=== PATIENT | female | born 1980 | race Asian ===

== ENCOUNTER 2023-12-10 17:49 | Inpatient (IN) | payer OTHER, SELFPAY ==
[2023-12-10 08:43] VITALS: BMI 29.2
[2023-12-10 08:54] VITALS: BP 95/59
[2023-12-10 11:32] VITALS: BP 95/56
[2023-12-10 11:34] LABS: % Basophils 0.2 % (0-2); % Immature Granulocytes 0.6 % (0-0.5); % Lymphocytes 4.4 % (20.5-51.1); % Monocytes 2.3 % (1.7-9.3); % Neutrophils 92.5 % (42.2-75.2); Absolute Basophils 0.1 10^3/uL (0-0.2); Absolute Immature Granulocytes 0.2 10^3/uL (0-0.05); Absolute Monocytes 0.5 10^3/uL (0.1-0.6); Absolute Neutrophils 21.4 10^3/uL (1.4-6.5); Hematocrit 38.8 % (37.0-47.0); Hemoglobin 13.3 g/dL (12.0-16.0); Mean Corp Hgb Conc. 34.3 g/dL (33.0-37.0); Mean Corpuscular Hgb 28.4 pg (27.0-31.0); Mean Corpuscular Volume 82.7 fL (81.0-99.0); Mean Platelet Volume 9.4 fL (7.4-10.4); Nucleated Red Blood Cells % 0 %; Platelet Count 274 10^3/uL (130-400); Red Blood Cell Count 4.69 10^6/uL (4.20-5.40); Red Cell Dist. Width 13.3 % (11.5-14.5); White Blood Cell Count 23.2 10^3/uL (4.8-10.8)
[2023-12-10 11:52] VITALS: BP 99/62
--- NOTE | 2023-12-10 11:54 | ED.GENMED ---
History of Present Illness
General
Chief Complaint: Breathing Problem
Source: patient
Exam Limitations: none
Time Seen by Provider: 12/10/23 11:44
Nursing documentation reviewed up to this point in time: agreed with
Travel History
Have you had any contact with someone who has COVID-19?: No
Do you have any symptoms of coronavirus? Fever > 100 degrees, chills, cough, shortness of breath, sore throat, loss of taste or smell, muscle aches, or headache?: No
History of Present Illness
History of Present Illness:
43-year-old female with no significant chronic medical issues presents to the emergency room for evaluation of abdominal pain and chills. Patient reports onset of symptoms about 2 days ago and they have been worsening since then. She says that
last night she had shaking chills which finally prompted her to come to the hospital. She says she has had abdominal pain worse in the lower abdomen�she says it radiates across her lower abdomen. She also reports some mild heartburn sensation.
She has had nausea but no vomiting. No diarrhea or constipation. No dysuria, hematuria, change in frequency. She denies any chest pain or shortness of breath. She denies any cough. She says she has a very mild headache. She denies any other
complaints. Noted to be febrile here�she has not taken anything for her fever she says. She denies any prior history of abdominal surgeries.
Past History
Past History
ED Past Medical History: None
ED Past Surgical History: None
Patient has exhibited threatening behavior?: No
PSI?: No
Social History
Tobacco: Non-smoker
Alcohol: None
Drug: None
Personal:
Living: with family
Review of Systems
Review of Systems
All Other Systems: ROS reviewed and negative except as documented in HPI and ROS
Constitutional: Reports fever and chills
EENT: Denies sore throat or runny nose
Respiratory: Denies cough or trouble breathing
Cardiac: Reports chest pain; Denies diaphoresis or palpitations
ABD/GI: Reports abdominal pain and nausea; Denies vomiting or diarrhea
: Denies dysuria, frequency or flank pain
Musculoskeletal: Denies neck pain or back pain
Neurological: Reports headache; Denies dizzy
Phy Exam
Physical Exam
Physical Exam:
General: Awake, alert, oriented x3; no acute distress
Head: Normocephalic, atraumatic
Eyes: Conjunctiva normal, sclera anicteric
Throat: Airway intact, handling secretions
Neck: Trachea midline, supple without meningismus
Lungs: Clear to auscultation bilaterally, no wheezing, rales, rhonchi
Heart: Tachycardia with regular rhythm, no murmurs, gallops, or rubs
Abd: Soft, non distended, diffusely tender maximally in the lower abdomen with voluntary guarding in the left lower quadrant and right lower quadrant
Back: No CVA tenderness
Neuro: No gross deficits
Skin: no rash
Extremities: No edema in extremities, warm and well-perfused
Scores
Heart Failure Risk
Heart Failure Risk Score: Not Applicable
Heart Score for Chest Pain Patients
STEMI patient?: Not applicable
Withdrawal Assessment of Alcohol
Withdrawal Assessment Completed?: Not applicable
Course
Orders/Labs/Results
Orders:
Orders
12/10/23 09:00
Electrocardiogram (*1) Urgent
Reason for Study: Shortness of Breath
EKG- Treatment ONCE
12/10/23 09:01
Test Result ONCE
12/10/23 11:30
Complete Blood Count/With Diff Urgent
Comprehensive Metabolic Panel Urgent
HCG, Serum Qualitative Screen Urgent
Lipase Urgent
12/10/23 11:47
CT Abd/pelvis W Iv Cont Urgent
Comment:
Reason For Exam: abd pain, fever
12/10/23 11:54
0.9% Sodium Chloride 1000 ml [Nss] 1,000 ml IV BOLUS
Acetaminophen [Tylenol] 1,000 mg PO NOW STA
12/10/23 11:59
Ketorolac [Toradol] 15 mg IV NOW STA
12/10/23 12:06
Lactate Level [Lactic Acid] Urgent
Blood Culture Q30M
YASSINE Source: Blood/Venous
Specimen Description:
Blood Culture Q30M
YASSINE Source: Blood/Venous
Specimen Description:
12/10/23 13:38
CUSTOMS ENTRY WRITER CONSULT Urgent
Consulting Provider: Deisy Eckert
Was physician already notified: Yes
CefTRIAXone [Rocephin] 1,000 mg IV NOW STA
MetroNIDAZOLE 500 MG/100 ML [Flagyl 500 mg] 100 ml IV NOW
12/10/23 13:45
Doxycycline Hyclate [Vibramycin] 100 mg 0.9% Sodium Chloride 250 ml [Nss] 250 ml IV NOW
12/10/23 14:19
Urinalysis Reflex To Culture Urgent
Date Specimen was Collected: 12/10/23
Time Specimen was Collected: 14:13
Urine Microscopic Reflex Cult Urgent
12/10/23 14:38
D-Dimer Urgent
12/10/23 14:47
Chlamydia/GC by PCR Urgent
YASSINE Source: ENCX
Specimen Description:
Source:: CERVIX
Date Specimen was Collected: 12/10/23
Time Specimen was Collected: 14:45
Genital Culture Urgent
YASSINE Source: Cervix
Specimen Description:
Date Specimen was Collected: 12/10/23
Time Specimen was Collected: 14:45
12/10/23 15:05
Admit Patient As Directed
Co-Sign Provider:
Level of Care: Inpatient admission
Assign to:: LDRP
Physician / Group: [facility]
Diagnosis: TOA
Patient Condition: Good
Reason for Hospitalization: TOA
Expected length of stay greater than two midnights?: Yes
ELOS- Estimated Length of Stay in days: 3
I certify the patient meets the requirements for IP care: Yes
Reason for Overnight Stay: Require IV med- infection
Type+Screen Urgent
Activity As Directed
Activity Level: Ambulate
Comment: Patient may ambulate
INT (Intravenous Needle Therapy) As Directed
Okay to Shower As Directed
Comment: for patient comfort unless contraindicated by maternal or condition
Vital Signs As Directed
Frequency: Per unit guidelines
Call for:: SBP >/= 160, DBP >/= 110, pulse > 120, temperature > 100.4 F
12/10/23 15:11
Acetaminophen [Tylenol] 1,000 mg PO Q6HPRN PRN
12/10/23 15:14
Add On - Microbiology Urgent
Tests Added?: Chlamydia/GC by PCR
12/10/23 15:18
Venous Foot Pumps As Directed
Location: Bilateral feet
Frequency: While in bed
DX Deep Vein Thrombosis Video Routine
12/10/23 15:22
Ibuprofen [Motrin] 600 mg PO Q6HPRN PRN
Ondansetron Injectable [Zofran] 8 mg Dextrose 5%/Water 50 ml [D5w] 50 ml IV Q6HPRN
Oxycodone [Roxicodone] 5 mg PO Q4HPRN PRN
12/10/23 15:26
Resume Diet As Directed
Comment: regular diet for now; NPO after midnight 12/10/23
12/10/23 15:47
CT Chest Pe Study Urgent
Comment:
Reason For Exam: cp
Acetaminophen [Tylenol] 1,000 mg PO Q6HPRN PRN
12/10/23 16:00
Lactated Ringers [Lr] 1,000 ml IV DIRECTED
12/10/23 16:08
0.9% Sodium Chloride 1000 ml [Nss] 1,000 ml IV BOLUS
12/10/23 18:00
Ibuprofen [Motrin] 600 mg PO Q6HPRN PRN
Ketorolac [Toradol] 15 mg IV Q6HPRN PRN
12/10/23 20:00
MetroNIDAZOLE 500 MG/100 ML [Flagyl 500 mg] 100 ml IV Q12H
12/10/23 22:00
Doxycycline Hyclate [Vibramycin] 100 mg 0.9% Sodium Chloride 250 ml [Nss] 250 ml IV Q12H
12/11/23 Breakfast
NPO
Allow oral meds: Yes
Allow clear liquids: Sips of Clears
Comment: NPO after midnight
Complete Blood Count/With Diff IN AM
12/11/23 11:59
Flush (0.9% Sodium Chloride) [Flush (Nss)] See Dose Instructions IV BID@1159,1201
12/11/23 12:00
CefTRIAXone [Rocephin] 1,000 mg IV Q24H
Sterile Water [Sterile Water For Injection] 10 ml IV Q24H
12/12/23 06:00
Complete Blood Count/With Diff IN AM
12/13/23 06:00
Complete Blood Count/With Diff IN AM
12/14/23 06:00
Complete Blood Count/With Diff IN AM
Abnormal Lab Results
12/10/23 12/10/23 12/10/23
11:30 14:19 14:38
WBC 23.2 H 10^3/uL
(4.8-10.8)
Abs Immat Gran (auto) 0.2 H 10^3/uL
(0-0.05)
Absolute Neuts (auto) 21.4 H 10^3/uL
(1.4-6.5)
Absolute Lymphs (auto) 1.0 L 10^3/uL
(1.2-3.4)
Immature Gran % 0.6 H %
(0-0.5)
Neutrophils % 92.5 H %
(42.2-75.2)
Lymphocytes % 4.4 L %
(20.5-51.1)
D-Dimer 1.05 H ug/mlFEU
(0.00-0.50)
Glucose 137 H mg/dl
(70-99)
Urine Ketones 1+ A
(Negative)
Ur Occult Blood Reflex Trace A
(Negative)
Leukocyte Esterase Rfl Trace A
(Negative)
12/10/23 11:30
12/10/23 11:30
Vital Signs
Initial and Last Documented VS:
Initial Vital Signs
Temp Pulse Resp BP Pulse Ox
37.5 C 110 18 95/59 98
12/10/23 08:54 12/10/23 08:54 12/10/23 08:54 12/10/23 08:54 12/10/23 08:54
Last Documented Vital Signs
Temp Pulse Resp BP Pulse Ox
37.3 C 75 20 94/59 97
12/10/23 13:51 12/10/23 16:45 12/10/23 12:45 12/10/23 16:29 12/10/23 16:45
MDM/Problems Addressed
Differential Diagnosis Includes:
Appendicitis, diverticulitis, cholecystitis, UTI/pyelonephritis
MDM/Problems Addressed:
43-year-old female presents to the emergency room for evaluation of abdominal pain associate with fever and shaking chills worsening over the past 48 hours. She arrived was mildly hypotensive at 95/59, tachycardic to 110, febrile to 38.4 �C.
Physical exam as above�she is diffusely tender in the abdomen but maximally in the lower abdomen. Will plan to place an IV check labs including a CBC and a CMP; with multiple SIRS criteria and concern for intra-abdominal infection will send lactate
and blood cultures. Will check lipase and hCG. Will check an EKG with her report of heartburn although low suspicion for cardiac pathology. Will send a urinalysis. Will treat fever with Tylenol, Toradol for pain, provide IV fluids. Monitor very
closely reassess after the above.
Labs reviewed: CBC shows leukocytosis to 23.2 with predominant neutrophils. CMP no clinically significant abnormalities. hCG negative. CT of the abdomen pelvis called at the radiology: Positive for right-sided tubo-ovarian abscess. Will treat
with ceftriaxone, doxycycline, metronidazole. Case discussed with CUSTOMS ENTRY WRITER who will come to bedside to evaluate.
CUSTOMS ENTRY WRITER to admit to their service for IV antibiotics. CUSTOMS ENTRY WRITER attending was concerned about patient's pleuritic chest pain�patient describes as heartburn but it is somewhat worse with inspiration, requesting PE workup prior to admission.
D-dimer was positive will send for CTA to rule out PE prior to admission to CUSTOMS ENTRY WRITER service.
CTA negative for PE�admit to CUSTOMS ENTRY WRITER service.
*Radiology
Radiology exam reviewed: radiology read reviewed
*Pulse Oximetry
Patient hypoxic: no
*EKG
Interpreted by ED Provider?: Yes
Heart Rate: 95
Rate: normal
Rhythm: sinus
Fults: normal axis
Interval: normal interval
QRS Pattern: normal QRS
Ischemia: no ischemia
*Critical Care Note
Total Time (30-74mins, 75-104mins- exclusive of procedures): Not Applicable
Data Reviewed
Source: patient, records and spouse
Patient Management
Discussion with other providers: Pulp Cooker (Discussed with CUSTOMS ENTRY WRITER)
Escalation/DeEscalation of care consider admission/obs:
Admission indicated
ED Attending Note
-
Portions of this chart may have been created with voice recognition software.� Occasional wrong word or��sound alike� substitutions may have occurred due to the inherent limitations of voice recognition software.
Discharge Plan
Departure
Patient Disposition: Admit
Date of Disposition: 12/10/23
Time of Disposition: 13:40
Admit to doctor: Babar
Presentation/result/management discussed w/ accepting MD/DO: CUSTOMS ENTRY WRITER
Discharge Problem:
Right tubo-ovarian abscess
Prescriptions:
No Action
Excedrin Migraine 250-250-65 mg Tablet
1 tab PO DAILYPRN PRN (Reason: migraine)
Referrals:
Ubaldo Kaba MD [Family Provider] -
Interventions
Interventions:
*Risk Screen - Suicide Last Done: 12/10/23 11:45
*General Assessment Last Done: 12/10/23 12:26
*Neglect/Abuse Screening Last Done: 12/10/23 11:45
ED- Fall Risk Assessment Last Done: 12/10/23 11:45
*ED COVID-19 Vaccine History Last Done: 12/10/23 11:45
ED- Cardiac Assessment Last Done: 12/10/23 11:45
ED- Pulmonary Assessment Last Done: 12/10/23 11:55
Discharge Date and Time
Print Language: EGYPTIAN
[2023-12-10 11:55] LABS: HCG, Serum Qualitative Screen Negative
[2023-12-10 12:00] VITALS: BP 102/64
[2023-12-10 12:01] LABS: ALT (SGPT) 15 U/L (0-35); AST (SGOT) 23 U/L (14-36); Albumin 4.4 g/dl (3.5-5.0); Alkaline Phosphatase 48 U/L (38-126); Blood Urea Nitrogen 12 mg/dl (7-17); Calcium 9.6 mg/dl (8.4-10.2); Carbon Dioxide 24 mmol/L (22-30); Chloride 101 mmol/L (98-107); Estimated Creatinine Clearance 111 ml/min; Glucose 137 mg/dl (70-99); Potassium 4.1 mmol/L (3.5-5.1); Sodium 135 mmol/L (135-145); Total Bilirubin 1.1 mg/dl (0.2-1.3); Total Protein 7.6 g/dl (6.3-8.2); eGFR > 60.00
[2023-12-10] MEDS: TORADOL 15 MG IV ×2 (12:14→21:16)
[2023-12-10] MEDS: TYLENOL 1000 MG PO (12:14)
[2023-12-10] MEDS: NSS 1000 IV ×2 (12:14→16:27)
[2023-12-10 12:51] LABS: Lipase 97 U/L (23-300)
[2023-12-10 12:51] LABS: Lactic Acid 1.1 mmol/L (0.7-2.0)
[2023-12-10] MEDS: FLAGYL 500 MG 100 IV (13:45)
[2023-12-10] MEDS: ROCEPHIN 1000 MG IV (13:45)
[2023-12-10 14:28] LABS: Urine Albumin Trace (Neg - Trace); Urine Bilirubin Negative (Negative); Urine Character Clear (Clear); Urine Color Yellow; Urine Glucose Negative (Negative); Urine Ketone 1+ (Negative); Urine Leukocyte Trace (Negative); Urine Nitrite Negative (Negative); Urine Occult Blood Trace (Negative); Urine Specific Gravity 1.005 (<1.030); Urine Urobilinogen Negative (Neg - 1+); Urine pH 6.5 (5.0-9.0)
--- NOTE | 2023-12-10 14:31 | HPS.HSE ---
Family Physician
-
Family Physician: Ubaldo Kaba
Chief Complaint
-
fever/chills
History of Present Illness
43yo , LMP 2wks ago, using nothing for BC, presents to the ER with c/o fever/chills. The past 2 nights has felt feverish with chills, though yesterday during the day felt okay. This morning, she had some nausea, too. No vomiting. Has not
eaten anything today yet. Has also had some substernal chest pain, worse when she takes a deep breath in and some lower pelvic discomfort; these symptoms just started today. Denies any inciting factor. Thought maybe she had pneumonia (denies cough)
so she came into the ER to be evaluated.
In the ER, patient febrile 101.1F on presentation and had leukocytosis 23. CT scan done and showed a 6.6 x 5.7 x 3.3cm right-sided TOA, so she was given Ceftriaxone 1gm IV, Flagyl 500mg IV and Doxycycline 100mg IV, and GREY ROLL MAN was consulted.
Medical History
Past Medical History
Past Medical History: Reports Other (migraines)
Additional Past Medical History:
GynHx: denies h/o STIs or abn paps; pap up to date, per pt. Patient has regular presidential support specialist at [facility] (Dr. Nathan); Has regular menses qMo, lasting about 1wk, some dysmenorrhea, first 2 days usually heavy.
ObHx: , term x2 (last baby 11yrs ago), 1st trimester SAB 2019
Past Surgical History: Reports None
Social History
Tobacco: Non-smoker
Alcohol: None
Drug: None
Personal:
Living: With Family ( and 2 kids)
Family History
Family History: Not pertinent
Allergies / Home Medications
Allergies reflects when Allergies were last updated in [employer].
Home Medications with original date entered in [employer]
Excedrin Migraine prn migraines-- last taken >24hrs ago
Allergy/Medication List:
PCN- unknown reaction as a child
Review of Systems
-
History Source: Patient
A 12 point ROS was completed and negative except as noted: Yes
Constitutional: Reports Fever and Chills
EENT: Reports No Symptoms (Denies URI sx)
Respiratory: Reports Other (substernal chest discomfort on deep inspiration; denies other chest pain, SOB, wheezing or cough)
Cardiac: Reports Chest Pain (see HPI-- only when taking a deep breath; Denies palpitations, dizziness, diaphoresis)
Abdomen/GI: Reports Abdominal Pain (lower abdominal discomfort today; Denies diarrhea or constipation) and Nausea
: Reports Discharge (vaginal discharge, no odor or vaginal irritation; Denies urinary sx)
Musculoskeletal: Reports No Symptoms (no leg pain or swelling)
Skin: Reports No Symptoms
Neurological: Reports No Symptoms
Endocrine: Reports No Symptoms
Hematologic/Lymphatic: Reports No Symptoms
Psych: Reports No Symptoms
Physical Exam
Vital Signs
Vital Signs
Temp 101.1F on presentation
Temp Pulse Resp BP Pulse Ox
99.2 F 96 20 102/64 96
12/10/23 13:51 12/10/23 14:18 12/10/23 12:45 12/10/23 12:00 12/10/23 14:00
Physical Exam
General: Well Developed, Well Nourished, No Apparent Distress and Conversant
HEENT: NormoCephalic and Moist mucous membranes
Respiratory: Clear and Non Labored Respirations
Cardiac: S1/S2 and Regular Rhythm
Breast: Deferred by me
GI: Soft, Non Distended, Normal Bowel Sounds and Tender (+mild TTP across the lower abdomen, R>L, no R/G)
Rectal: Deferred by Provider
Genito-urinary: Vaginal Discharge (yellow/brown watery discharge- vaginitis swab, GC/CT swab sent to lab) and Other (NEFG, no lesions, 6wk AV uterus, +rt adnexal fullness and mild TTP, no CMT, no left adnexal mass or TTP)
Musculoskeletal: No Clubbing, No Cyanosis, No Edema and Normal Gait & Station
Skin: Warm and Dry
Neuro: Awake, Alert and Oriented
Hematologic/Lymphatic: No Lymphadenopathy
Psych: Calm
Laboratory Results
-
12/10/23 11:30
12/10/23 11:30
Laboratory Results
Lactic Acid 1.1 mmol/L (0.7-2.0) 12/10/23 12:06
Total Bilirubin 1.1 mg/dl (0.2-1.3) 12/10/23 11:30
AST 23 U/L (14-36) 12/10/23 11:30
ALT 15 U/L (0-35) 12/10/23 11:30
Alkaline Phosphatase 48 U/L (38-126) 12/10/23 11:30
Lipase 97 U/L (23-300) 12/10/23 11:30
HCG negative
Data Reviewed
-
Critical Care Time (in minutes): 60
CT Scan: Report Reviewed by me, Discussed with Physician and Discussed with Patient
Lab Data: Labs Reviewed by me and Discussed with Physician
Impression/Plan
-
IMPRESSION: 43yo premenopausal, non- female with 6.6cm right-sided TOA. Non-surgical abdomen on exam and not septic.
Fever resolved after Tylenol and initiation of IV antibiotics in the ER.
Of note, pt has some substernal chest discomfort with deep inspiration. EKG normal in ER. No leg swelling or leg pain. SpO2 has been 95-99%.
PLAN:
-Admit to [facility]
-ER physician to r/o VTE/PE prior to admission to the [facility] (low suspicion)
-Ambulate as tolerated, JONI hose for VTE prophylaxis
-IV fluids at maintenance
-Reg diet for now, NPO after midnight in case patient does not continue to clinically improve
-Meds: -IV Ceftriaxone 1gm q24hr, Doxycycline 100mg BID and Flagyl 500mg BID
-Zofran prn nausea
-Motrin, Tylenol prn pain, oxycodone prn severe pain
-CBC qAM
-Pt counseled that we would expect clinical improvement in the 24-48hrs. IF patient does not improve after 48hrs or clinically worsens, then surgical intervention may be necessary. Repeat imaging may also be done in about 72hrs.
60mins spent reviewing chart, obtaining history, examining patient, counseling patient and on plan, coordinating care with ER physician and documentation.
Patricia Eckert,
[2023-12-10] MEDS: VIBRAMYCIN 260 MG IV (14:39)
[2023-12-10 14:59] LABS: Urine Red Blood Cell 0-2 /HPF (0-2); Urine White Cell 0-2 /HPF (0-5)
[2023-12-10 15:36] LABS: D-Dimer 1.05 ug/mlFEU (0.00-0.50)
[2023-12-10 16:29] VITALS: BP 94/59
[2023-12-10 19:47] VITALS: BMI 28.6
[2023-12-10 20:34] VITALS: BP 102/66
--- NOTE | 2023-12-10 22:42 | W.PN.UPDATE ---
Update Note
Progress Note Update
Pt feeling better since admission. Nausea has resolved, tolerating reg diet. Denies f/c. Not in pain when just lying still, but has some lower abdominal discomfort when she is up moving around, across the whol lower abdomen. Has not had anything for
pain since the ER. Requesting medication for a GUTIERREZ. States chest discomfort has now resolved. No SOB. No leg pain.
VSS- afebrile, 98.1F
Gen: NAD
Abd: soft, ND, no mass, +mild TTP across the lower abdomen, R>L,no R/G
Extr: no calf TTP
A/P 43yo pre-menopausal, non- female with 6.6cm right TOA. No signs of Sepsis. Appears to be clinically improving already on IV abx.
-Continue IV rocephin/flagyl/doxy
-NPO after midnight, just in case she is not continuing to improve. If still clinically improving in the AM, will change back to reg diet
-Toradol, tylenol, oxycodone prn pain-- may have toradol or tylenol now for GUTIERREZ
-Continue current care
Patricia Eckert,
[2023-12-11] MEDS: FLAGYL 500 MG 100 IV ×2 (01:29→13:25)
[2023-12-11] MEDS: VIBRAMYCIN 260 MG IV ×2 (02:46→14:36)
[2023-12-11 04:18] VITALS: BP 90/52
[2023-12-11 05:03] LABS: % Basophils 0.3 % (0-2); % Eosinophils 1.3 % (0-6); % Immature Granulocytes 0.3 % (0-0.5); % Lymphocytes 19.5 % (20.5-51.1); % Monocytes 6.9 % (1.7-9.3); % Neutrophils 71.7 % (42.2-75.2); Absolute Eosinophils 0.2 10^3/uL (0-0.7); Absolute Lymphocytes 2.3 10^3/uL (1.2-3.4); Absolute Monocytes 0.8 10^3/uL (0.1-0.6); Absolute Neutrophils 8.6 10^3/uL (1.4-6.5); Hematocrit 32.9 % (37.0-47.0); Hemoglobin 10.6 g/dL (12.0-16.0); Mean Corp Hgb Conc. 32.2 g/dL (33.0-37.0); Mean Corpuscular Hgb 28.2 pg (27.0-31.0); Mean Corpuscular Volume 87.5 fL (81.0-99.0); Mean Platelet Volume 10.1 fL (7.4-10.4); Nucleated Red Blood Cells % 0 %; Platelet Count 229 10^3/uL (130-400); Red Blood Cell Count 3.76 10^6/uL (4.20-5.40); Red Cell Dist. Width 13.4 % (11.5-14.5); White Blood Cell Count 11.9 10^3/uL (4.8-10.8)
[2023-12-11] MEDS: LR 1000 IV ×2 (05:49→15:43)
--- NOTE | 2023-12-11 07:43 | W.PN.GYN ---
Today's Communication / Plan
-
43yo F with 6.6cm right TOA. Clinically improving on IV abx.
-Continue IV Rocephin/Flagyl/Doxy
-Advance to reg diet
-Ambulatory
Physician Note
-
Patient continues to feel better. No f/c overnight. Last fever was at 1130 yesterday, 101.1F. Lower abdominal pain still present, rated about a 3-4/10, but better than it was. Has not needed narcotic pain meds. GUTIERREZ resolved. CP/SOB also resolved
(had this in the ED-- CT chest neg for PE). Denies leg pain.
VSS- BP 90/52, HR 79, RR 16, T 98.3F
Gen: NAD, WD/WN
Abd: soft, mild ttp across lower abdomen, R>L, ND, no r/g
Extr: no calf TTP or edema b/l
Labs reviewed-- 11.9> 10.6/32.9<229K (WBC down from 23 yesterday)
A/P 43yo F with 6.6cm right TOA. Clinically improving on IV abx.
-Continue IV Rocephin/Flagyl/Doxy
-Advance to reg diet
-Ambulatory, JONI mcgrath for VTE prophylaxis
-Pain meds as needed
Patricia Eckert, DO
[2023-12-11 09:04] VITALS: BP 108/76
[2023-12-11] MEDS: STERILE WATER FOR INJECTION 10 ML IV (11:47)
[2023-12-11] MEDS: ROCEPHIN 1000 MG IV (11:47)
[2023-12-11] MEDS: FLUSH (NSS) 1 FLUSH IV (11:51)
[2023-12-11 12:43] VITALS: BP 101/54
[2023-12-11] MEDS: FLUSH (NSS) IV (13:24)
--- NOTE | 2023-12-11 16:16 | W.PN.UPDATE ---
Update Note
Progress Note Update
Patient seen and evaluated earlier this AM by Dr Eckert, note reviewed.
Patient resting comfortably in chair, feels 'better', but tired and with decreased appetite, but no nausea or vomiting. Pain improved, has not required medication today.
Reviewed plan which would be to continue with IV antibiotic therapy for minimum 72 hours, daily CBC, await culture results and repeat imaging in 72 hours (Friday), as long as patient is feeling clinically improved.
Patient aware will need 14 day course of antibiotics, oral ones to be used post-Hospitalization.
Patient has ASSOCIATE PROFESSOR PHYSICIAN, aware will need follow up post hospitalization.
[2023-12-11 16:25] VITALS: BP 115/75
--- NOTE | 2023-12-11 18:45 | PTCARENOTE ---
Pt c/o discomfort at PIV site. IV pump alraming occlusion. Unable to flush L wrist PIV. IV restarted R forearm. IV infusing w/o discomfort
[2023-12-11] MEDS: TORADOL 15 MG IV (19:42)
[2023-12-12 00:15] VITALS: BP 88/61
[2023-12-12] MEDS: FLAGYL 500 MG 100 IV ×2 (01:30→13:25)
[2023-12-12] MEDS: VIBRAMYCIN 260 MG IV ×2 (02:45→14:48)
[2023-12-12 06:02] LABS: % Basophils 0.2 % (0-2); % Eosinophils 1.8 % (0-6); % Immature Granulocytes 0.6 % (0-0.5); % Lymphocytes 20.7 % (20.5-51.1); % Neutrophils 71.7 % (42.2-75.2); Absolute Eosinophils 0.2 10^3/uL (0-0.7); Absolute Immature Granulocytes 0.1 10^3/uL (0-0.05); Absolute Lymphocytes 1.8 10^3/uL (1.2-3.4); Absolute Monocytes 0.4 10^3/uL (0.1-0.6); Absolute Neutrophils 6.3 10^3/uL (1.4-6.5); Hematocrit 30.2 % (37.0-47.0); Mean Corp Hgb Conc. 33.1 g/dL (33.0-37.0); Mean Corpuscular Hgb 27.7 pg (27.0-31.0); Mean Corpuscular Volume 83.7 fL (81.0-99.0); Mean Platelet Volume 9.8 fL (7.4-10.4); Nucleated Red Blood Cells % 0 %; Platelet Count 233 10^3/uL (130-400); Red Blood Cell Count 3.61 10^6/uL (4.20-5.40); Red Cell Dist. Width 13.2 % (11.5-14.5); White Blood Cell Count 8.8 10^3/uL (4.8-10.8)
[2023-12-12 08:47] VITALS: BP 122/82
[2023-12-12] MEDS: STERILE WATER FOR INJECTION 10 ML IV (12:05)
[2023-12-12] MEDS: FLUSH (NSS) 1 FLUSH IV ×2 (12:06→12:19)
[2023-12-12] MEDS: ROCEPHIN 1000 MG IV (12:07)
--- NOTE | 2023-12-12 12:17 | W.PN.OBG.DWH ---
Today's Communication / Plan
-
iv abx
Assessment/Plan
-
TOA on abx
f/up imaging study in am
anticipate oral abx upon dc
Subjective Data
-
no complaints, no bm , no abd pain, ambulating the halls
pink dc x 2
Objective Data
-
Laboratory Results
12/12/23 05:51
12/10/23 11:30
Vital Signs
Temp Pulse Resp BP Pulse Ox
98.5 F 69 18 122/82 99
12/12/23 08:47 12/12/23 08:47 12/12/23 08:47 12/12/23 08:47 12/12/23 08:47
lungs cl
cor rrr
abd decr bs soft, nt
ext nt
bl cx pending
gc/chlam neg
--- NOTE | 2023-12-12 14:31 | CM ---
Met with pt at bedside
Pt lives with her and children in a 2 story home
Independent. Does not work. Children are 11 and 17
DME - none
SNF/HH - denies past hx
Has ride at d/c
PCP - Dr Daysi Kaba
Pharm - [facility]
Plan - anticipate home no needs
[2023-12-12 15:03] VITALS: BP 113/78
[2023-12-12 21:12] VITALS: BP 109/70
[2023-12-13 01:00] VITALS: BP 113/71
[2023-12-13] MEDS: FLAGYL 500 MG 100 IV (01:00)
[2023-12-13] MEDS: VIBRAMYCIN 260 MG IV (02:06)
[2023-12-13 04:53] LABS: % Basophils 0.7 % (0-2); % Eosinophils 3.2 % (0-6); % Immature Granulocytes 0.4 % (0-0.5); % Monocytes 5.3 % (1.7-9.3); % Neutrophils 60.4 % (42.2-75.2); Absolute Basophils 0.1 10^3/uL (0-0.2); Absolute Eosinophils 0.2 10^3/uL (0-0.7); Absolute Monocytes 0.4 10^3/uL (0.1-0.6); Absolute Neutrophils 4.1 10^3/uL (1.4-6.5); Hemoglobin 10.2 g/dL (12.0-16.0); Mean Corpuscular Hgb 28.6 pg (27.0-31.0); Mean Platelet Volume 9.5 fL (7.4-10.4); Nucleated Red Blood Cells % 0 %; Platelet Count 237 10^3/uL (130-400); Red Blood Cell Count 3.57 10^6/uL (4.20-5.40); Red Cell Dist. Width 13.1 % (11.5-14.5); White Blood Cell Count 6.8 10^3/uL (4.8-10.8)
--- NOTE | 2023-12-13 06:00 | PTCARENOTE ---
VSS, afebrile. Continues on IV antibiotics, Flagyl and Doxycycline administered as per order overnight. Patient denies abdominal pain or discomfort. Eager to possibly go home. WBC down this am to 6.8. Called sanitation technician last night around 2100
inquiring if ultrasound would be done at 0600 as patient is to drink 32 ounces of fluid and be finished 45 minutes prior to testing. Dayshift to call down after 0700 to see when Price can be scheduled so that she may begin to drink required
fluids. Will continue to monitor.
[2023-12-13 08:26] VITALS: BP 120/83
[2023-12-13 10:00] VITALS: BP 120/83
[2023-12-13] MEDS: FEOSOL 325 MG PO (10:32)
[2023-12-13] MEDS: STERILE WATER FOR INJECTION 10 ML IV (12:00)
[2023-12-13] MEDS: FLUSH (NSS) 1 FLUSH IV (12:00)
--- NOTE | 2023-12-13 12:05 | W.PN.OBG.DWH ---
Today's Communication / Plan
-
Discharge
Begin Flagyl 500 mg and Doxycycline 100 mg po bid for 11 additional days-scripts sent to pharmacy electronically
Motrin 600 mg po q6h prn pain/cramps
daily vitamin with iron and Feosol daily
Nothing in the vagina until told otherwise by her field sales engineer
Contact Dr Tse (patient's obstetrics gyn) upon discharge for follow up in his office this week, bring reports to visit
Assessment/Plan
-
Tubo-ovarian abscess-Clinically much improved and with no worsening of mass, patient is candidate for conservative management. Reviewed imaging with radiologist who reports that slight change in dimensions of the mass are likely due to imaging
differences, that is has not changed. Patient has completed 3 day course of IV antibiotics, will now switch to Flagyl 500 mg and Doxycycline 100 mg both bid for additional 11 days. patient has received copies of pelvic ultrasound and CT scan
reports, as well as last CBC to give to her FRONT COUNTER CLERK. Patient advised to contact her FRONT COUNTER CLERK upon discharge for followup this week, sooner if develops worsening abdominal pain or fever. Reviewed with patient that she must complete the course of antibiotics
and that her FRONT COUNTER CLERK will decide if additional treatment/surgery is necessary. The importance of compliance was stressed. Patient to continue with pelvic rest, importance stressed.
Subjective Data
-
Patient denies pain. Would like to go home. Reviewed ultrasound report with patient, no worsening of mass, per radiologist.
Objective Data
-
Laboratory Results
12/13/23 04:40
12/10/23 11:30
Vital Signs
Temp Pulse Resp BP Pulse Ox
97.7 F 68 18 120/83 98
12/13/23 08:26 12/13/23 08:26 12/13/23 08:26 12/13/23 08:26 12/12/23 21:12
Abdomen-soft, nontender, nondistended, no masses/rebound or guarding, normal bowel sounds
Extremities-no calf pain
[2023-12-13] MEDS: ROCEPHIN 1000 MG IV (12:09)
--- NOTE | 2023-12-13 12:21 | W.DS.TRANS ---
DC Summary - Economic Development Coordinator
-
Discharge Instructions:
Discharge Diagnosis/Procedures Tubo-ovarian abscess
Diet No restrictions,Other diet
Additional Diets Take daily vitamin with iron
Activity Other activity
Additional Activity Nothing in the vagina
Driving Restrictions As prior to admission
Bathing Restrictions None
Specialty Instructions Weigh Daily
Instructions:
Stand-Alone Forms:
Changes to Home Medications: Yes
Discharge Medications:
DC Medications w/original date entered in [employer]
sfruhbl-qffaoktcabhpd-coghidao 250 mg-250 mg-65 mg tablet (Excedrin Migraine) 1 tab PO DAILYPRN PRN migraine 12/10/23
acetaminophen 500 mg tablet (Tylenol Extra Strength) 1,000 mg (2 x 500 mg) PO Q6HPRN PRN mild pain/fever #0 tabs 12/13/23
doxycycline hyclate 100 mg capsule 100 mg PO Q12 #22 caps 12/13/23
ferrous sulfate 325 mg (65 mg iron) tablet (FeroSul) 325 mg PO DAILY #0 tabs 12/13/23
ibuprofen 600 mg tablet 600 mg PO Q6HPRN PRN pain or cramping #30 tabs 12/13/23
metronidazole 500 mg tablet 500 mg PO Q12H #22 tabs 12/13/23
Home Medication Changes
see above
Pending Results: Yes
Additional Pending Results:
final blood culture reports
Total time spent discharging patient (in min): 40
[2023-12-13] MEDS: FLAGYL 500 MG PO (12:24)
[2023-12-13] MEDS: VIBRAMYCIN 100 MG PO (12:38)
--- NOTE | 2023-12-13 13:18 | CM ---
CM reviewed chart, plan discharge home, no needs.
Plan; home no needs.
== END 2023-12-13 13:30 | disposition home or self-care (01) | DRG 759 ==
LOC: LDRP 17:49
PROVIDERS: Emergency Medicine; ADMITTING PHYSICIAN Obstetrics & Gynecology; EMERGENCY PHYSICIAN Emergency Medicine; FAMILY PHYSICIAN Internal Medicine
DX: N70.92 Oophoritis, unspecified (principal); N70.93 Salpingitis and oophoritis, unspecified
CPT/HCPCS: 71275; 74177; 76830; 76856; 80053; 81003; 81015; 83605; 83690; 84703; 85025; 85379; 86850; 86900; 86901; 87040; 87070; 87491; 87591; 93005; 96374; 96375; 99285; Q9967

== ENCOUNTER 2024-03-14 20:39 | Inpatient (IN) | payer OTHER, SELFPAY ==
[2024-03-14 13:31] VITALS: BP 109/74
--- NOTE | 2024-03-14 15:00 | ED.GENMED ---
History of Present Illness
General
Chief Complaint: Abdominal Pain
Time Seen by Provider: 03/14/24 14:04
History of Present Illness
History of Present Illness:
43-year-old female presenting with lower abdominal pain starting this morning. Patient denies nausea, vomiting, diarrhea or urinary symptoms. LMP 02/22. Patient states that she woke up this morning with diffuse bodyaches. Patient denies recent
fever or chills.
Past History
Past History
ED Past Medical History: None
ED Past Surgical History: None
Patient has exhibited threatening behavior?: No
PSI?: No
Social History
Tobacco: Non-smoker
Alcohol: None
Drug: None
Personal:
Living: with family
Phy Exam
Physical Exam
Physical Exam:
General: Alert, no acute distress
Head: NCAT
Eyes: clear conjunctiva
Neck: supple
Cardiac: regular rate and rhythm, no murmur
Lungs: clear to auscultation bilaterally. No wheezes, rales, or rhonchi. Speaking full unlabored sentences. No respiratory distress.
Abdomen: soft, nondistended, lower abdominal tenderness to palpation. No rebound or guarding.
MSK: no lower extremity edema bilaterally. No deformity
Skin: warm, dry
Neuro: Alert and oriented x3. no focal deficits
Course
Orders/Labs/Results
Orders:
Orders
03/14/24 14:32
0.9% Sodium Chloride 1000 ml [Nss] 1,000 ml IV BOLUS
03/14/24 14:33
CT Abd/Pel (IV only)-DH only Urgent
Comment:
Reason For Exam: lower abdominal tenderness
Test Result ONCE
03/14/24 14:46
Complete Blood Count/With Diff Urgent
Comprehensive Metabolic Panel Urgent
HCG, Urine Qualitative Screen Urgent
Date Specimen was Collected: 03/14/24
Time Specimen was Collected: 14:42
Lactic Acid Urgent
Lipase Urgent
UA Reflex to Culture [Urinalysis Reflex To Culture] Urgent
Date Specimen was Collected: 03/14/24
Time Specimen was Collected: 14:42
03/14/24 18:10
CefTRIAXone [Rocephin] 1,000 mg IV NOW STA
Doxycycline Hyclate [Vibramycin] 100 mg 0.9% Sodium Chloride 250 ml [Nss] 250 ml IV NOW
MetroNIDAZOLE 500 MG/100 ML [Flagyl 500 mg] 100 ml IV NOW
03/14/24 18:39
Blood Culture Urgent
YASSINE Source: Blood/Venous
Specimen Description:
Genital Culture Urgent
YASSINE Source: Vagina
Specimen Description:
03/14/24 19:09
Blood Culture Routine
YASSINE Source: Blood/Venous
Specimen Description:
Abnormal Lab Results
03/14/24
14:46
WBC 16.8 H 10^3/uL
(4.8-10.8)
MCV 80.7 L fL
(81.0-99.0)
Abs Immat Gran (auto) 0.1 H 10^3/uL
(0-0.05)
Absolute Neuts (auto) 14.4 H 10^3/uL
(1.4-6.5)
Absolute Monos (auto) 0.7 H 10^3/uL
(0.1-0.6)
Immature Gran % 0.8 H %
(0-0.5)
Neutrophils % 85.8 H %
(42.2-75.2)
Lymphocytes % 8.9 L %
(20.5-51.1)
Glucose 119 H mg/dl
(70-99)
Urine Ketones 2+ A
(Negative)
03/14/24 14:46
03/14/24 14:46
Vital Signs
Initial and Last Documented VS:
Initial Vital Signs
Temp Pulse BP Pulse Ox
98.3 F 116 109/74 98
03/14/24 13:31 03/14/24 13:31 03/14/24 13:31 03/14/24 13:31
Last Documented Vital Signs
Temp Pulse BP Pulse Ox
98.3 F 116 109/74 98
03/14/24 13:31 03/14/24 13:31 03/14/24 13:31 03/14/24 13:31
MDM/Problems Addressed
Differential Diagnosis Includes:
Appendicitis, diverticulitis, UTI, IBS
MDM/Problems Addressed:
43-year-old female presenting with lower abdominal pain starting this morning. Patient states that pain is worse with movement, better with rest. Patient has lower abdominal tenderness to palpation. Will obtain labs, CT abdomen pelvis.
Results reviewed, CT abdomen/pelvis shows Redemonstration of large right-sided probable tubo-ovarian abscess, slightly increased from 12/10/2023, measures 7.1 x 4.7 x 8.0 cm as read by radiology. WBC 16.8. Ordered IV ceftriaxone, flagyl, and
doxycycline. Discussed results with patient at bedside who states she has a history of right tubo-ovarian abscess in December 2023. Pt states she was managed nonoperatively, took oral antibiotics to completion. Pt states she saw her BUFFET WAITER/WAITRESS at [facility]
who ordered repeat ultrasound but she never did it because her pain improved.
Discussed with Dr. Hernandez, BUFFET WAITER/WAITRESS, who evaluated patient in ER and accepts patient for admission.
*Critical Care Note
Total Time (30-74mins, 75-104mins- exclusive of procedures): Not Applicable
ED Attending Note
-
Portions of this chart may have been created with voice recognition software.� Occasional wrong word or��sound alike� substitutions may have occurred due to the inherent limitations of voice recognition software.
Discharge Plan
Departure
Patient Disposition: Admit
Date of Disposition: 03/14/24
Time of Disposition: 19:16
Presentation/result/management discussed w/ accepting MD/DO: BUFFET WAITER/WAITRESS Dr. Hernandez
Discharge Problem:
Right tubo-ovarian abscess
Prescriptions:
No Action
Excedrin Migraine 250-250-65 mg Tablet
1 tab PO DAILYPRN PRN (Reason: migraine)
Referrals:
Ubaldo Kaba MD [Family Provider] -
Interventions
Interventions:
*Risk Screen - Suicide Last Done: 03/14/24 14:33
*General Assessment Last Done: 03/14/24 14:33
*Neglect/Abuse Screening Last Done: 03/14/24 14:33
ED- Fall Risk Assessment Last Done: 03/14/24 14:33
NC-Vrqzvm-Vdhvyjmdww Assessment Last Done: 03/14/24 14:33
Discharge Date and Time
Print Language: ARMENIAN
[2024-03-14] MEDS: NSS 1000 IV (15:24)
[2024-03-14 15:28] LABS: % Basophils 0.3 % (0-2); % Eosinophils 0.1 % (0-6); % Immature Granulocytes 0.8 % (0-0.5); % Lymphocytes 8.9 % (20.5-51.1); % Monocytes 4.1 % (1.7-9.3); % Neutrophils 85.8 % (42.2-75.2); Absolute Basophils 0.1 10^3/uL (0-0.2); Absolute Immature Granulocytes 0.1 10^3/uL (0-0.05); Absolute Lymphocytes 1.5 10^3/uL (1.2-3.4); Absolute Monocytes 0.7 10^3/uL (0.1-0.6); Absolute Neutrophils 14.4 10^3/uL (1.4-6.5); Hematocrit 38.4 % (37.0-47.0); Hemoglobin 13.2 g/dL (12.0-16.0); Mean Corp Hgb Conc. 34.4 g/dL (33.0-37.0); Mean Corpuscular Hgb 27.7 pg (27.0-31.0); Mean Corpuscular Volume 80.7 fL (81.0-99.0); Mean Platelet Volume 10.4 fL (7.4-10.4); Nucleated Red Blood Cells % 0 %; Platelet Count 252 10^3/uL (130-400); Red Blood Cell Count 4.76 10^6/uL (4.20-5.40); Red Cell Dist. Width 13.2 % (11.5-14.5); White Blood Cell Count 16.8 10^3/uL (4.8-10.8)
[2024-03-14 15:30] LABS: Urine Albumin Negative (Neg - Trace); Urine Bilirubin Negative (Negative); Urine Character Clear (Clear); Urine Color Yellow; Urine Glucose Negative (Negative); Urine Ketone 2+ (Negative); Urine Leukocyte Negative (Negative); Urine Nitrite Negative (Negative); Urine Occult Blood Negative (Negative); Urine Specific Gravity 1.015 (<1.030); Urine Urobilinogen Negative (Neg - 1+)
[2024-03-14 15:39] LABS: Lactic Acid 0.8 mmol/L (0.7-2.0)
[2024-03-14 15:45] LABS: HCG, Urine Qualitative Screen Negative
[2024-03-14 15:52] LABS: ALT (SGPT) 18 U/L (0-35); AST (SGOT) 25 U/L (14-36); Albumin 4.7 g/dl (3.5-5.0); Alkaline Phosphatase 56 U/L (38-126); Blood Urea Nitrogen 10 mg/dl (7-17); Calcium 9.9 mg/dl (8.4-10.2); Carbon Dioxide 22 mmol/L (22-30); Chloride 101 mmol/L (98-107); Glucose 119 mg/dl (70-99); Lipase 89 U/L (23-300); Potassium 3.9 mmol/L (3.5-5.1); Sodium 136 mmol/L (135-145); Total Bilirubin 1.2 mg/dl (0.2-1.3); Total Protein 7.6 g/dl (6.3-8.2); eGFR > 60.00
[2024-03-14 17:00] VITALS: BP 134/82
--- NOTE | 2024-03-14 20:18 | CON.MD ---
Consultation - Medical
-
43 yo (no contraception) with LMP 02/22 presented to ER c/o lower abdominal pain and diffuse body aches. 'tightness' and sensitivity in abdomen. Feels 'tight' with movement. pulling sensation. Took Excedrin for pain. walks daily for exercise
and stopped 3 d ago. no change in appetite, bowel habits. Denies fever, n, v. Reports pain with intercourse 'like a needle' but tolerable. workup in ER significant for wbc 16. CT scan positive for thick walled tubular fluid structure in R adnexa
measuring 7.1 cm 4.7 cm. 8 cm. Pt was admitted December 09 for fever, leucocytosis 23 R TOA. Sxs improved on ceftriaxone, doxy and flagyl and was discharged home on abx with instructions to f/up with her retail cashier associate at [facility]. was supposed to do f/up
pelvic us 2 m ago but did not as she was feeling well
PMH/PSH x 2
meds none
all. pcn as child. tolerated ceftriaxone
No cigs/etoh/drugs, SAHM
FH NC
ROS does not add
pleasant appearing white female
afeb vss
lungs cl
cor rrr
abd +bs soft, tender with mild guarding
ext nt
Pelvic exam: nml vulva, bus, vagina
cvx parous. no cmt
ut globular
tender R adnexa with fulness
wbc 16
hcg neg
ct scan: thickwalled tubular fluid structure r adnexa 7.1 cm x 4.7 cm x 8 cm
Imp abd pain. R TOA
Plan:
Antibiotic therapy
pelvic us in am
IR consult
if improvement of sxs, wbc may continue full course of abx therapy (14d) as outpt, surgical rx as necessary
reviewed with pt, all questions answered
60 min spent review of chart, review with Dr. Coles, exam and d/w pt.
[2024-03-14 21:07] VITALS: BP 103/72; BMI 27.5
[2024-03-14] MEDS: STERILE WATER FOR INJECTION 10 ML IV (21:35)
[2024-03-14] MEDS: ROCEPHIN 1000 MG IV (21:35)
[2024-03-14] MEDS: FLAGYL 500 MG 100 IV (21:36)
[2024-03-14] MEDS: VIBRAMYCIN 260 MG IV (21:36)
[2024-03-14] MEDS: TYLENOL 650 MG PO (21:54)
[2024-03-14 22:52] VITALS: BP 110/68
--- NOTE | 2024-03-15 00:19 | PTCARENOTE ---
03/14/24 21:00pt rec;d from ER , pt able to slef transfer from stretcher to bed. Pt aaox 3, c/o RLQ abd pain with some slight pulling type of pain to her RUQ area 10/05, declining pain med. IV abt hung, tulenol given for elevated temp, oriented to unit.
[2024-03-15 05:08] LABS: % Basophils 0.4 % (0-2); % Eosinophils 1.8 % (0-6); % Immature Granulocytes 0.6 % (0-0.5); % Lymphocytes 22.8 % (20.5-51.1); % Monocytes 7.6 % (1.7-9.3); % Neutrophils 66.8 % (42.2-75.2); Absolute Eosinophils 0.2 10^3/uL (0-0.7); Absolute Immature Granulocytes 0.1 10^3/uL (0-0.05); Absolute Lymphocytes 2.3 10^3/uL (1.2-3.4); Absolute Monocytes 0.8 10^3/uL (0.1-0.6); Absolute Neutrophils 6.7 10^3/uL (1.4-6.5); Hemoglobin 11.2 g/dL (12.0-16.0); Mean Corp Hgb Conc. 33.9 g/dL (33.0-37.0); Mean Corpuscular Hgb 27.7 pg (27.0-31.0); Mean Corpuscular Volume 81.5 fL (81.0-99.0); Mean Platelet Volume 10.4 fL (7.4-10.4); Nucleated Red Blood Cells % 0 %; Platelet Count 233 10^3/uL (130-400); Red Blood Cell Count 4.05 10^6/uL (4.20-5.40); Red Cell Dist. Width 13.3 % (11.5-14.5); White Blood Cell Count 10.1 10^3/uL (4.8-10.8)
[2024-03-15 07:04] VITALS: BP 90/54
[2024-03-15] MEDS: FLAGYL 500 MG PO ×2 (07:50→20:55)
[2024-03-15] MEDS: VIBRAMYCIN 100 MG PO ×2 (07:50→20:55)
--- NOTE | 2024-03-15 10:14 | CM ---
Admitted with R tubo-ovarian mass
Met with pt at bedside
Pt reports she lives with her and children in a 2 story home; 2 steps to enter, 12 steps to 2nd fl
Independent, drives
DME - none
SNF/HH - denies hx
Has ride at discharge
PCP - Ubaldo Kaba
Pharm - [facility]
For IR today
Plan - anticipate home no needs when medically ready
[2024-03-15 11:21] LABS: INR 1.17; PT 14.7 Sec (11.4-14.6)
[2024-03-15 12:12] VITALS: BP 102/63
[2024-03-15 14:35] VITALS: BP 107/65; BP_SYST 89
--- NOTE | 2024-03-15 14:41 | W.PN.GYN ---
Addendum entered and electronically signed by Viridiana Rubalcava DO 03/15/24 17:26:
Patient is s/p IR drainage of TOA yielding 20cc. An 8 Frech drain was placed. Patient to follow up with IR for removal of drain when output is less than 10-15cc/d. Patient requesting to stay overnight for pain control. Will order CBC in AM. Regular
diet ordered. Likely DC in AM.
Original Note:
Today's Communication / Plan
-
Patient is a 43yo admitted with TOA
- CT scan on admission thick walled tubular fluid structure in the right adnexa measuring 7.1 cm x 4.7 cm x 8 cm consistent w/ TOA
- Patient was previously admitted with a TOA in December but never followed up
- Continue ceftriaxone, doxycycline and flagyl
- WBC 16.8->10.1
- Remains afebrile and VSS
- IR consult pending
- Pelvic US ordered
- Pending IR consult for drainage, patient is stable for discharge home as she has remained afebrile with improvement in her WBC count. She will need to complete a 14 day course of antibiotics and follow up outpatient with her GATEMAN. Will follow-up
after IR consult
Physician Note
-
S: Patient seen and examined. No complaints. She reports her pain is much improved and she only has minimal right lower quadrant tenderness. She denies fevers or chills. She has been NPO for IR consultation today. She reports slight nausea after
taking po antibiotics, but denies any vomiting. States she has slight brown vaginal discharge.
O:
Vitals: BP 102/63, HR 79, temp 98.4
General: well appearing, no acute distress
Cardio: RRR
Pulm: no increased work of breathing
Abd: slight tenderness to palpation of RLQ with no rebound, rigidity, or guarding
Ext: non tender
A/P:
Patient is a 43yo admitted with TOA
- CT scan on admission thick walled tubular fluid structure in the right adnexa measuring 7.1 cm x 4.7 cm x 8 cm consistent w/ TOA
- Patient was previously admitted with a TOA in December but never followed up
- Continue ceftriaxone, doxycycline and flagyl
- WBC 16.8->10.1
- Remains afebrile and VSS
- IR consult pending
- Pelvic US ordered
- Pending IR consult for drainage, patient is stable for discharge home as she has remained afebrile with improvement in her WBC count. She will need to complete a 14 day course of antibiotics and follow up outpatient with her GATEMAN. Will follow-up
after IR consult
[2024-03-15 16:34] VITALS: BP 118/78
[2024-03-15] MEDS: ROXICODONE 5 MG PO (16:36)
[2024-03-15] MEDS: ZOFRAN 4 MG IV (19:45)
[2024-03-15] MEDS: ROCEPHIN 1000 MG IV (19:48)
[2024-03-15] MEDS: STERILE WATER FOR INJECTION 10 ML IV (19:49)
[2024-03-15 23:40] VITALS: BP 102/62
[2024-03-16 07:05] VITALS: BP 109/71
[2024-03-16 07:38] LABS: % Basophils 0.4 % (0-2); % Eosinophils 1.4 % (0-6); % Immature Granulocytes 0.5 % (0-0.5); % Lymphocytes 25.8 % (20.5-51.1); % Monocytes 5.4 % (1.7-9.3); % Neutrophils 66.5 % (42.2-75.2); Absolute Eosinophils 0.1 10^3/uL (0-0.7); Absolute Immature Granulocytes 0.1 10^3/uL (0-0.05); Absolute Lymphocytes 2.6 10^3/uL (1.2-3.4); Absolute Monocytes 0.5 10^3/uL (0.1-0.6); Absolute Neutrophils 6.6 10^3/uL (1.4-6.5); Hematocrit 35.1 % (37.0-47.0); Hemoglobin 11.8 g/dL (12.0-16.0); Mean Corp Hgb Conc. 33.6 g/dL (33.0-37.0); Mean Corpuscular Volume 83.2 fL (81.0-99.0); Mean Platelet Volume 10.5 fL (7.4-10.4); Nucleated Red Blood Cells % 0 %; Platelet Count 241 10^3/uL (130-400); Red Blood Cell Count 4.22 10^6/uL (4.20-5.40); Red Cell Dist. Width 13.4 % (11.5-14.5); White Blood Cell Count 9.9 10^3/uL (4.8-10.8)
--- NOTE | 2024-03-16 08:50 | W.PN.OBG.DWH ---
Today's Communication / Plan
-
Continue with current antibiotics
Follow up with culture reports
Follow drainage-per IR, when drainage less than 10-15 cc per day, patient to return for removal and repeat CT scan
Order for Case management and VN to assist patient with drain upon discharge
Given patient's noncompliance, feel that patient should remain for 3 days IV Ceftriaxone
Patient plans to follow up with her MULTI PURPOSE MACHINE OPERATOR upon discharge, strongly emphasized need to do this and follow instructions
Assessment/Plan
-
A/P Status post drainage of tubo-ovarian abscess-stable, continue with current antibiotic regimen, including IV Ceftriaxone, follow cultures, Case management to assist with arranging home care for drain. Patinet will need to complete a 14 day
course of antibiotics. Patient will follow up with her MULTI PURPOSE MACHINE OPERATOR after discharge.
Subjective Data
-
Patient reports feeling better. Was a'little dizzy' when she got out of bed to bathroom first time today, went away. Denies abdominal pain
Objective Data
-
Laboratory Results
03/16/24 06:17
03/14/24 14:46
Vital Signs
Temp Pulse Resp BP Pulse Ox
98.0 F 73 18 109/71 98
03/16/24 07:05 03/16/24 07:05 03/16/24 07:05 03/16/24 07:05 03/16/24 07:05
Abdomen-soft, nondistended, nontender, good bowel sounds, no rebound or guarding. Drain bandage clean
Extremities-no calf pain
Blood cultures still negative.
Abscess culture in progress
GC and Chlamydia-negative
[2024-03-16] MEDS: FLAGYL 500 MG PO ×2 (08:52→20:57)
[2024-03-16] MEDS: VIBRAMYCIN 100 MG PO ×2 (08:52→20:57)
--- NOTE | 2024-03-16 09:58 | PN.CDI ---
CDI
- -
CDI:
Physician Documentation Request
Admit Date: 03/14/24 20:39
Dear PIPE ORGAN TUNER AND REPAIRER,
Patient admitted for tubo-ovarian abscess.
Laboratory Tests
03/14/24
14:46
WBC 16.8 H
03/14/24
21:07
Temp 100.7 F H
03/14/24
13:31 03/14/24
21:07 03/14/24
22:52
Pulse 116 92 90
Please clarify which of the following most accurately describes the status of the patient's infection:
Sepsis, POA
- Systemic manifestations of infection, with 2 or more SIRS criteria which include:
- Fever >100.4 degrees F or hypothermia < 96.8 degrees F
- Leukocytosis - WBC > 12,000 or leukopenia - WBC < 4,000 or > 10% bands
- Tachycardia > 90 beats per minute
- Tachypnea - RR > 20 breaths per minute or PaCO2 , 32mmHg
Source: Merck Manual 2013
Localized Infection Only, Without Systemic Illness
- indicate the site/source, such as abscess
Other
Use of terms such as suspected, likely, concern for, or probable (associated with a specific diagnosis that is being evaluated, monitored, or treated as if it exists) are acceptable and can be coded in the inpatient setting, when documented at the
time of discharge.
Thank you,
Sangeeta Peña RN, BSN
CDI Specialist
Available via [employer] text
Please use your independent medical judgment in providing your response.
--- NOTE | 2024-03-16 11:48 | CM ---
Case management following for discharge planning
Pt with AARON drain. Physician requesting VN
Spoke with pt - agreeable to VN - no preference
TT sent to [facility] Liaison for Home care needs
Pt reports she will have transport home at discharge
Plan - home with [facility] when medically ready
[2024-03-16] MEDS: ZOFRAN 4 MG IV (12:13)
--- NOTE | 2024-03-16 14:23 | VNURNOTE ---
Home Health Liaison met with patient at bedside to discuss [facility] nurse/therapy, visits, schedule and homebound status. Patient is agreeable and understands that visits at home will be 1-3 x per week to assess and teach medical management and AARON drain
care and management.
[facility] brochure provided with contact information. Patient is aware that [facility] will contact them for start of care in 1-2 days after discharge from .
[facility] referral completed in [facility].
[2024-03-16 15:05] VITALS: BP 88/53
[2024-03-16] MEDS: MOTRIN 400 MG PO (15:22)
[2024-03-16] MEDS: ROCEPHIN 1000 MG IV (20:57)
[2024-03-16] MEDS: STERILE WATER FOR INJECTION 10 ML IV (20:57)
[2024-03-16 23:15] VITALS: BP 104/69
[2024-03-17 06:34] LABS: % Basophils 0.6 % (0-2); % Eosinophils 3.7 % (0-6); % Immature Granulocytes 0.5 % (0-0.5); % Lymphocytes 32.9 % (20.5-51.1); % Monocytes 6.9 % (1.7-9.3); % Neutrophils 55.4 % (42.2-75.2); Absolute Eosinophils 0.2 10^3/uL (0-0.7); Absolute Lymphocytes 2.1 10^3/uL (1.2-3.4); Absolute Monocytes 0.4 10^3/uL (0.1-0.6); Absolute Neutrophils 3.5 10^3/uL (1.4-6.5); Hematocrit 35.1 % (37.0-47.0); Hemoglobin 11.7 g/dL (12.0-16.0); Mean Corp Hgb Conc. 33.3 g/dL (33.0-37.0); Mean Corpuscular Hgb 27.5 pg (27.0-31.0); Mean Corpuscular Volume 82.6 fL (81.0-99.0); Mean Platelet Volume 10.1 fL (7.4-10.4); Nucleated Red Blood Cells % 0 %; Platelet Count 262 10^3/uL (130-400); Red Blood Cell Count 4.25 10^6/uL (4.20-5.40); Red Cell Dist. Width 13.2 % (11.5-14.5); White Blood Cell Count 6.2 10^3/uL (4.8-10.8)
[2024-03-17 07:00] VITALS: BP 97/62
[2024-03-17] MEDS: VIBRAMYCIN 100 MG PO (08:56)
[2024-03-17] MEDS: FLAGYL 500 MG PO (08:56)
--- NOTE | 2024-03-17 10:01 | W.PN.GYN ---
Today's Communication / Plan
-
-Stable for D/c home with home drain care (already arranged). When drain output is <10-15ml/day, then will need f/u with IR for removal. Case management involved to help coordinate.
-PO abx for 11 more days (Doxy/Flagyl)
-Pt advised to f/u with her HEAD LOFT WORKER, Dr. Tse within 1wk
-Counseled pt on medication instructions, drain instructions, f/u plan, return precautions
Physician Note
-
Pt doing well this morning. Wants to go home. Pain is improved. Tolerating reg diet. Ambulating. Denies fevers/chills, CP, SOB, leg pain, vb.
VSS- see below
Gen: NAD, WD/WN
Abd: soft, NTTP, ND
Drain site in RLQ c/d/i
Drain output 30ml last 24hrs
Extr no c/c/e, no calf ttp
wound culture- prelim result, no growth
blood cultures- no growth
See labs below
A/P 43yo F, improving clinically post-procedure day 2 s/p IR drainage of 8cm right TOA. On IV Ceftriaxone, PO Doxy and PO Flagyl.
Repeat pelvic US yesterday showed significant decrease in TOA size, now 3cm. Drain output still 30ml yesterday.
-Stable for D/c home with home drain care (already arranged). When drain output is <10-15ml/day, then will need f/u with IR for removal. Case management involved to help coordinate.
-PO abx for 11 more days (Doxy/Flagyl)
-Pt advised to f/u with her HEAD LOFT WORKER, Dr. Tse within 1wk
-Counseled pt on medication instructions, drain instructions, f/u plan, return precautions
Patricia Eckert, DO
Vital Signs / Labs
-
Vital Signs and Labs:
Temp Pulse Resp BP Pulse Ox
97.5 F 68 18 97/62 98
03/17/24 07:00 03/17/24 07:00 03/17/24 07:00 03/17/24 07:00 03/17/24 07:00
03/17/24 05:06
03/14/24 14:46
03/17/24
05:06
Hgb 11.7 L
Hct 35.1 L
Imaging Data
-
Diagnostic Imaging Report
SignedOrder #:[id number]
Exams: US Pelvis W Transvag Combined
EXAMINATION: Ultrasound of the pelvis with transabdominal and endovaginal
CPT: 19354, 45518
INDICATION: 43-year-old with reported history of tubo-ovarian abscess. Reported history of drainage catheter.
COMPARISON: CT of the abdomen and pelvis from March 14, 2024. Ultrasound of the pelvis from December 13, 2023. Images from CT drainage procedure of March 15, 2024.
FINDINGS: Pelvic ultrasound is performed with transabdominal and endovaginal exams.
The uterus measures 10.5 x 5.6 x 7.4 cm. The endometrial stripe measures 11 mm on endovaginal examination, appearance suggesting the late proliferative phase. No focal abnormality of the endometrium.
There is a solid mass in the posterior uterine body, intramural, compatible with a fibroid, measuring 2.4 x 2.1 x 2.5 cm.
Small nabothian cysts are seen within the cervix.
The left ovary appears normal, measuring 2.5 x 2.2 x 2.2 cm, with normal color and spectral Doppler imaging.
In the right adnexa, there is a complex cystic mass, which measures 3.0 x 3.8 x 3.0 cm, measurements smaller than on CT examination of March 14, 2024. This likely represents tubo-ovarian abscess, decreased size since CT of March 14, 2024.
There is normal color and spectral Doppler imaging to the surrounding ovarian stroma.
No significant free pelvic fluid is identified.
IMPRESSION: Complex cystic mass in the right adnexa, decreased size compared to CT examination of March 24, 2024. This most likely represents tubo-ovarian abscess. Patient reportedly still has a drainage catheter present, with the drainage
catheter not well visualized sonographically.
The left ovary appears normal.
There is a fibroid within the posterior uterine body, intramural.
Electronically signed by Davion Schulte MD, 03/16/2024 11:17 AM
Dictated By: Davion Schulte MD
Dictated Date & Time: 03/16/24 1111
Signed/Co-Signer By: Davion Schulte MD /
Signed/Co-Signer Date & Time: 03/16/24 1117 /
Transcribed by: Davion Schulte
Printed Date and Time: @
cc:
--- NOTE | 2024-03-17 10:19 | W.DS.TRANS ---
DC Summary - Electronic Publications Specialist
-
Discharge Instructions:
Discharge Diagnosis/Procedures tuboovarian abscess (right), s/p percutaneous
drain placement
Diet No restrictions
Activity As tolerated
Additional Activity No intercourse until cleared by your
or rn
Driving Restrictions Not until seen by your Dr
Bathing Restrictions no baths until drain removed
Others Tests You will need a repeat CT scan when drain is
removed
Other Services VN
Wound Care keep drain site clean and dry. Okay to shower,
pat dry and place new clean dressing afterwards.
Instructions:
Stand-Alone Forms:
Changes to Home Medications: Yes
Discharge Medications:
DC Medications w/original date entered in [employer]
ogqwbjy-sdorlzxxqyrir-njgbvubq 250 mg-250 mg-65 mg tablet (Excedrin Migraine) 1 tab PO DAILYPRN PRN migraine 12/10/23
acetaminophen 325 mg tablet 650 mg (2 x 325 mg) PO Q4HPRN PRN mild pain/GUTIERREZ/temp> 100.4F #0 tabs 03/17/24
doxycycline hyclate 100 mg capsule 100 mg PO Q12 #22 caps 03/17/24
ibuprofen 600 mg tablet 600 mg PO Q6HPRN PRN pain #20 tabs 03/17/24
metronidazole 500 mg tablet 500 mg PO Q12H #22 tabs 03/17/24
Home Medication Changes
Do not take the Excedrin migraine while taking Motrin.
Pending Results: No
Total time spent discharging patient (in min): 30
--- NOTE | 2024-03-17 10:55 | CM ---
Pt for discharge today
Has ride home with
[facility] to follow - notified Liaison of discharge
Plan - home with [facility]
== END 2024-03-17 12:34 | disposition home health service (06) | DRG 759 ==
LOC: 2 SOUTH 20:39
PROVIDERS: Obstetrics & Gynecology; Radiology Vascular & Interventional Radiology; Student in an Organized Health Care Education/Training Program; ADMITTING PHYSICIAN Obstetrics & Gynecology; EMERGENCY PHYSICIAN Emergency Medicine; FAMILY PHYSICIAN Internal Medicine
PROC: 0W9J30Z Drainage of Pelvic Cavity with Drainage Device, Percutaneous Approach (ICD-10-PCS; 2024-03-15)
DX: N70.93 Salpingitis and oophoritis, unspecified (principal); D72.829 Elevated white blood cell count, unspecified; Z88.0 Allergy status to penicillin
CPT/HCPCS: 49406; 74177; 76830; 76856; 80053; 81003; 81025; 83605; 83690; 85025; 85610; 87040; 87070; 87205; 96360; 99152; 99153; 99285; Q9967

== ENCOUNTER → 2024-03-23 09:30 | Outpatient (REF) | payer OTHER, SELFPAY ==
[2024-03-23 09:47] VITALS: BP 90/63; BP_SYST 70
== END ==
LOC: RADI 09:30
PROVIDERS: ATTENDING PHYSICIAN Obstetrics & Gynecology; FAMILY PHYSICIAN Internal Medicine
DX: Z46.82 Encounter for fitting and adjustment of non-vascular catheter (principal); N70.93 Salpingitis and oophoritis, unspecified
CPT/HCPCS: 49424; 76080

== ENCOUNTER 2024-06-27 23:50 | Emergency (ER) | payer OTHER, SELFPAY ==
[2024-06-27 23:51] VITALS: BP 108/66
--- NOTE | 2024-06-28 03:29 | ED.GENMED ---
History of Present Illness
General
Chief Complaint: Musculo-Skeletal Complaint
Source: patient, spouse and previous hospital records (Previous hospitalization March of this year for treatment of right tubo-ovarian abscess, IR placed a drain in the abscess, discharged to home with oral antibiotics.)
Exam Limitations: none
Time Seen by Provider: 06/28/24 03:12
Nursing documentation reviewed up to this point in time: agreed with
History of Present Illness
History of Present Illness:
This is a 43-year-old woman who was hospitalized here in March for right tubo-ovarian abscess. Started on IV antibiotics, IR placed a drain in the abscess and she was discharged to home on oral antibiotics. Right lower quadrant drain removed
by IR the following week. She has since followed up with her primary paper products inspector at [facility] and she underwent diagnostic laparoscopy on , June 24 with plan for right salpingectomy however was found to have
normal-appearing right fallopian tube. She was discovered however to have a right inguinal hernia. She was recommended to follow-up with general surgery for inguinal hernia repair.
Since she has been feeling well, only minimal right lower quadrant discomfort for which she has not required any pain medication.
Tonight however around 7:15 pm she developed sudden onset of shivering, shaking chills accompanied with nausea, headache. Shaking chills and nausea without vomiting lasted perhaps 40 minutes. Sometime after that she noticed some tingling of her
fingers and toes and also some pressure in her chest most noted with lying down and during car ride here she had mild ache to her left upper back. Now feeling improved but she admits that when she 'googled' her symptoms she was worried about heart
attack.
She has not had a cough nor shortness of breath, no palpitations. No leg pain or swelling. No dysuria and urgency and or hematuria. She has not passed a bowel movement over the past 3 days, she did take MiraLAX earlier today.
She does continue with mild frontal headache. Intermittent nausea but no further chest pain, no paresthesias.
Past History
Past History
ED Past Medical History: None
ED Past Surgical History: None
Patient has exhibited threatening behavior?: No
PSI?: No
Social History
Tobacco: Non-smoker
Alcohol: None
Drug: None
Personal:
Living: with family
Phy Exam
Physical Exam
Physical Exam:
GENERAL: 43-year-old woman appears her stated age, awake and alert, pleasant, appears in no acute distress. is accompanying.
EYE: pupils equal and reactive. anicteric
NECK: Supple, nontender, no meningismus, no significant adenopathy.
ENT: posterior pharynx is clear, oral mucosa is moist. TM clear b/l, nares patent.
CARDIAC: Regular rate and rhythm. no murmur.
LUNGS: Clear breath sounds bilaterally, no acute respiratory distress, no wheezes/rales/rhonchi
ABDOMEN: Soft, nondistended, minimal tenderness with deep palpation only to the right lower quadrant, no r/g, no cvat. normoactive BS. Dry and intact laparoscopy incisions at the umbilicus as well as bilateral lower quadrants.
NEUROLOGICAL: Alert and oriented x3, no focal neuro deficits. Gait is gabriel and steady.
SKIN: Warm and dry, normal color, skin intact. No rash.
MUSCULOSKELETAL: No C/C/E. peripheral pulses are full and equal b/l. No palpable tenderness.
PSYCH: Normal and appropriate interaction.
Course
Orders/Labs/Results
Orders:
Orders
06/28/24 03:28
Electrocardiogram (*1) Urgent
Reason for Study: Chest Pain
EKG- Treatment ONCE
06/28/24 03:29
Urinalysis Reflex To Culture Urgent
06/28/24 04:00
Basic Metabolic Panel Urgent
Complete Blood Count/With Diff Urgent
Troponin I Urgent
06/28/24 04:06
Acetaminophen [Tylenol] 650 mg .ROUTE .STK-MED ONE
Ondansetron Injectable [Zofran] 4 mg .ROUTE .STK-MED ONE
06/28/24 04:07
Ondansetron Injectable [Zofran] 4 mg IV NOW STA
06/28/24 04:08
Acetaminophen [Tylenol] 650 mg PO NOW STA
Abnormal Lab Results
06/28/24
04:00
WBC 14.6 H 10^3/uL
(4.8-10.8)
MCHC 32.9 L g/dL
(33.0-37.0)
Abs Immat Gran (auto) 0.1 H 10^3/uL
(0-0.05)
Absolute Neuts (auto) 12.5 H 10^3/uL
(1.4-6.5)
Immature Gran % 0.6 H %
(0-0.5)
Neutrophils % 85.1 H %
(42.2-75.2)
Lymphocytes % 10.7 L %
(20.5-51.1)
Sodium 133 L mmol/L
(135-145)
BUN 18 H mg/dl
(7-17)
Glucose 114 H mg/dl
(70-99)
06/28/24 04:00
06/28/24 04:00
Vital Signs
Initial and Last Documented VS:
Initial Vital Signs
Temp Pulse Resp BP Pulse Ox
98.0 F 110 22 108/66 99
06/27/24 23:51 06/27/24 23:51 06/27/24 23:51 06/27/24 23:51 06/27/24 23:51
Last Documented Vital Signs
Temp Pulse Resp BP Pulse Ox
98.7 F 110 22 108/66 99
06/28/24 04:14 06/27/24 23:51 06/27/24 23:51 06/27/24 23:51 06/27/24 23:51
MDM/Problems Addressed
Differential Diagnosis Includes:
Concerned that shaking chills and nausea with fever related. Currently afebrile but currently asymptomatic. ACS is much less likely however patient had been complaining of some chest pain thus will check labs, EKG.
She also noted some tingling of her fingers and toes which has since resolved. No weakness. Not consistent with CVA. I suspect she may have had an element of hyperventilation.
She is noted to have very mild right lower quadrant pain with deep palpation only, this is apparently been an ongoing issue since March.
Noted to have right inguinal hernia during laparoscopy procedure 4 days ago.
Currently afebrile but we will continue to monitor for return of symptoms.
Will check labs, EKG, urinalysis and chest x-ray.
*Pulse Oximetry
Patient hypoxic: no
*EKG
Interpreted by ED Provider?: Yes
Interpretation: normal
Comparison EKG: no comparison EKG present
Rate: normal
Rhythm: sinus
[place]: normal axis
Interval: normal interval
QRS Pattern: normal QRS
Ischemia: no ischemia
*Critical Care Note
Total Time (30-74mins, 75-104mins- exclusive of procedures): Not Applicable
Update Note
Update Note:
06:00
Patient feeling improved after Zofran and Tylenol. Nausea and headache have resolved. Resting comfortably.
No return of shaking chills.
No chest pain. No paresthesia.
Labs show mildly elevated white blood cell count otherwise unremarkable. EKG and troponin are normal.
I suspect febrile illness, viral syndrome.
Recommend supportive measures, staying well-hydrated, Tylenol versus ibuprofen as needed for aches, headache, fever.
A prescription for Zofran has been provided for as needed nausea.
Prompt follow-up with PCP for recheck.
ED Attending Note
-
Portions of this chart may have been created with voice recognition software.� Occasional wrong word or��sound alike� substitutions may have occurred due to the inherent limitations of voice recognition software.
Discharge Plan
Departure
Patient Disposition: Home (Routine Discharge)
Date of Disposition: 06/28/24
Time of Disposition: 05:58
Patient with high blood pressure during this ER visit?: No
Condition: Good
Discharge Problem:
Acute viral syndrome
Instructions: Fever, Adult ED
Prescriptions:
New
ondansetron 4 mg tablet,disintegrating
4 mg PO QID PRN (Reason: nausea and vomiting) Qty: 20 0RF
No Action
Excedrin Migraine 250-250-65 mg Tablet
1 tab PO DAILYPRN PRN (Reason: migraine)
metronidazole 500 mg Tablet
500 mg PO Q12H Qty: 22 0RF
ibuprofen 600 mg tablet
600 mg PO Q6HPRN PRN (Reason: pain) Qty: 20 0RF
acetaminophen 325 mg Tablet
650 mg PO Q4HPRN PRN (Reason: mild pain/GUTIERREZ/temp> 100.4F) Qty: 0 0RF
doxycycline hyclate 100 mg Capsule
100 mg PO Q12 Qty: 22 0RF
Referrals:
Ubaldo Kaba MD [Family Provider] - Call in 1-3 days for appt
Interventions
Interventions:
*Risk Screen - Suicide Last Done: 06/28/24 04:00
*General Assessment Last Done: 06/28/24 04:00
*Neglect/Abuse Screening Last Done: 06/28/24 00:20
ED- Fall Risk Assessment Last Done: 06/28/24 04:14
*ED COVID-19 Vaccine History Last Done: 06/28/24 04:00
ED-Musculoskeletal Assessment Last Done: 06/28/24 04:13
Discharge Date and Time
Print Language: UKRAINIAN
[2024-06-28 04:01] VITALS: BMI 30.7
[2024-06-28] MEDS: ZOFRAN 4 MG IV (04:07)
[2024-06-28] MEDS: TYLENOL 650 MG PO (04:08)
[2024-06-28 04:20] LABS: % Basophils 0.4 % (0-2); % Eosinophils 1.2 % (0-6); % Immature Granulocytes 0.6 % (0-0.5); % Lymphocytes 10.7 % (20.5-51.1); % Neutrophils 85.1 % (42.2-75.2); Absolute Basophils 0.1 10^3/uL (0-0.2); Absolute Eosinophils 0.2 10^3/uL (0-0.7); Absolute Immature Granulocytes 0.1 10^3/uL (0-0.05); Absolute Lymphocytes 1.6 10^3/uL (1.2-3.4); Absolute Monocytes 0.3 10^3/uL (0.1-0.6); Absolute Neutrophils 12.5 10^3/uL (1.4-6.5); Hematocrit 38.6 % (37.0-47.0); Hemoglobin 12.7 g/dL (12.0-16.0); Mean Corp Hgb Conc. 32.9 g/dL (33.0-37.0); Mean Corpuscular Hgb 27.7 pg (27.0-31.0); Mean Corpuscular Volume 84.3 fL (81.0-99.0); Mean Platelet Volume 9.7 fL (7.4-10.4); Nucleated Red Blood Cells % 0 %; Platelet Count 227 10^3/uL (130-400); Red Blood Cell Count 4.58 10^6/uL (4.20-5.40); Red Cell Dist. Width 13.1 % (11.5-14.5); White Blood Cell Count 14.6 10^3/uL (4.8-10.8)
[2024-06-28 04:39] LABS: Blood Urea Nitrogen 18 mg/dl (7-17); Calcium 9.3 mg/dl (8.4-10.2); Carbon Dioxide 24 mmol/L (22-30); Chloride 102 mmol/L (98-107); Estimated Creatinine Clearance 113 ml/min; Glucose 114 mg/dl (70-99); Potassium 4.3 mmol/L (3.5-5.1); Sodium 133 mmol/L (135-145); eGFR > 60.00
[2024-06-28 04:43] LABS: Troponin I < 0.012 ng/ml
== END 2024-06-28 06:11 | disposition home or self-care (01) ==
LOC: EMR 23:50
PROVIDERS: EMERGENCY PHYSICIAN Emergency Medicine; FAMILY PHYSICIAN Internal Medicine
DX: B34.9 Viral infection, unspecified (principal); K40.90 Unilateral inguinal hernia, without obstruction or gangrene, not specified as recurrent
CPT/HCPCS: 99283; 96374; 80048; 84484; 85025; 93005

== ENCOUNTER 2024-12-16 06:26 | Day surgery (SDC) | payer OTHER, SELFPAY ==
[2024-12-16] VITALS (9 sets, daily range): BP systolic 71–104; BP diastolic 36–69; BMI 28.0
[2024-12-16] MEDS: NORMOSOL-R/PLASMALYTE-A 1000 IV (11:22)
--- NOTE | 2024-12-16 11:28 | PTCARENOTE ---
Patient states that she had coffee with 1 tablespoon of cream in it at 0530. Will monitor patient.
== END 2024-12-16 13:30 | disposition home or self-care (01) ==
LOC: SDS 06:26
PROVIDERS: ATTENDING PHYSICIAN Surgery
DX: K60.2 Anal fissure, unspecified (principal); K64.9 Unspecified hemorrhoids
CPT/HCPCS: 46505; J0585

== ENCOUNTER 2025-02-02 22:54 | Emergency (ER) | payer OTHER, SELFPAY ==
[2025-02-02 22:56] VITALS: BP 123/82
[2025-02-02 23:09] LABS: Urine Character Slightly Cloudy (Clear)
[2025-02-02 23:20] LABS: Urine Red Blood Cell >100 /HPF (0-2); Urine Squamous Cell 0-2 /LPF (Few); Urine White Cell >100 /HPF (0-5)
[2025-02-03 00:38] VITALS: BP 113/80
[2025-02-03 00:43] VITALS: BMI 29.7
--- NOTE | 2025-02-03 03:09 | ED.GENMED ---
History of Present Illness
General
Chief Complaint: Urinary Symptoms
Time Seen by Provider: 02/03/25 01:33
Nursing documentation reviewed up to this point in time: agreed with
History of Present Illness
History of Present Illness:
44-year-old female presents to the ER for evaluation of urinary frequency and burning which started today. Patient does have a prior history of multiple urinary tract infections although she has not had one in over 2 years. Patient had been seen
by urology in the past and had been given prescription for Macrobid to use as prophylaxis after intercourse. She has not been using this recently and has not had any issues with symptoms until today. She denies any fevers or chills. No flank
pain. No nausea vomiting or diarrhea. Patient did take a dose of Macrobid prior to arrival in the ER. She has not used any other medications for her symptoms.
Past History
Past History
ED Past Medical History: None
ED Past Surgical History: None
Patient has exhibited threatening behavior?: No
PSI?: No
Social History
Tobacco: Non-smoker
Alcohol: None
Drug: None
Personal:
Living: with family
Phy Exam
Physical Exam
Physical Exam:
Patient is awake, alert, appears no acute distress, mucous membranes moist, conjunctiva pink, heart regular rate and rhythm without murmurs or ectopy, lungs are clear to auscultation no wheezes rales or rhonchi, abdomen is soft and nontender on
palpation, no guarding or rebound, extremities without edema, GCS of 15
Course
Orders/Labs/Results
Orders:
Orders
02/02/25 23:01
Urinalysis Reflex To Culture Urgent
Date Specimen was Collected: 02/02/25
Time Specimen was Collected: 22:56
Urine Microscopic Reflex Cult Urgent
Urine Culture Urgent
YASSINE Source: U
Specimen Description:
Date Specimen was Collected: 02/02/25
Time Specimen was Collected: 22:56
02/03/25 01:40
Phenazopyridine HCl [Pyridium] 200 mg PO NOW STA
Abnormal Lab Results
02/02/25
23:01
Ur Occult Blood Reflex 4+ A
(Negative)
Leukocyte Esterase Rfl 3+ A
(Negative)
Urine RBC >100 A /HPF
(0-2)
Urine WBC (Reflex) >100 A /HPF
(0-5)
Urine Bacteria (Reflex) Moderate A
(Negative)
Urine Albumin (Reflex) 3+ A
(Neg - Trace)
Urinalysis is consistent with infection
Vital Signs
Initial and Last Documented VS:
Initial Vital Signs
Temp Pulse Resp BP Pulse Ox
98.5 F 81 18 123/82 98
02/02/25 22:56 02/02/25 22:56 02/02/25 22:56 02/02/25 22:56 02/02/25 22:56
Last Documented Vital Signs
Temp Pulse Resp BP Pulse Ox
98.3 F 68 20 113/80 99
02/03/25 00:38 02/03/25 00:38 02/03/25 00:38 02/03/25 00:38 02/03/25 00:38
MDM/Problems Addressed
Differential Diagnosis Includes:
Differential diagnosis to consider but not limited to acute cystitis, pyelonephritis, dehydration, vaginitis along with other etiologies considered
Chronic conditions affecting care:
Frequent urinary tract infections
*Pulse Oximetry
SaO2: 99
Oxygen Mode of Delivery: Room air
Patient hypoxic: no
*Critical Care Note
Total Time (30-74mins, 75-104mins- exclusive of procedures): Not Applicable
Update Note
Update Note:
I discussed with patient urinalysis consistent with urinary tract infection and treatment of same. She has no systemic symptoms. She feels comfortable with plan for discharge home. Will give 1 dose of Pyridium given irritative nature of complaint
prior to discharge. Patient expressed understanding of medication usage, pending urine culture result and strict return precautions. She had no questions prior to leaving the department.
ED Attending Note
-
Portions of this chart may have been created with voice recognition software.� Occasional wrong word or��sound alike� substitutions may have occurred due to the inherent limitations of voice recognition software.
Discharge Plan
Departure
Patient Disposition: Home (Routine Discharge)
Date of Disposition: 02/03/25
Time of Disposition: 01:40
Patient with high blood pressure during this ER visit?: No
Discharge Problem:
Urinary tract infection
Instructions: Urinary tract infections in adults
Prescriptions:
New
phenazopyridine [Pyridium] 200 mg tablet
200 mg PO TID Qty: 6 0RF
nitrofurantoin monohyd/m-cryst [Macrobid] 100 mg capsule
100 mg PO Q12H 5 Days Qty: 10 0RF
No Action
[place] 40-1-0.5 mg Tablet
1 tab PO DAILY
Referrals:
Ubaldo Kaba MD [Family Provider, Internal Medicine]
Activity Restrictions/Additional Instructions:
Encourage fluids. Please return to the ER in 48 hours if your symptoms have not improved or sooner if you develop fever, inability to eat or drink, worsening pain
Interventions
Interventions:
*Risk Screen - Suicide Last Done: 02/02/25 22:56
*General Assessment Last Done: 02/02/25 22:56
*Neglect/Abuse Screening Last Done: 02/02/25 22:56
*ED- Fall Risk Assessment Last Done: 02/02/25 22:56
*ED COVID-19 Vaccine History Last Done: 02/02/25 22:56
*Nursing Disposition Last Done: 02/03/25 01:52
ED-Female Genitourinary Assessment Last Done: 02/03/25 00:40
Discharge Date and Time
Discharge Date/Time: 02/03/25 01:53
Print Language: SETS[place]
== END 2025-02-03 01:53 | disposition home or self-care (01) ==
LOC: EMR 22:54
PROVIDERS: Emergency Medicine; EMERGENCY PHYSICIAN Emergency Medicine; FAMILY PHYSICIAN Internal Medicine
DX: N39.0 Urinary tract infection, site not specified (principal); Z87.440 Personal history of urinary (tract) infections
CPT/HCPCS: 99282; 81003; 81015; 87077; 87086; 87186